=== PATIENT | male | born 1970 | race Caucasian/White ===

== ENCOUNTER 2017-01-13 17:06 | Emergency (ER) | payer OTHER | END 2017-01-13 19:53 | disposition home or self-care (01) | LOC: ER 17:06 | DX: S67.196A Crushing injury of right little finger, initial encounter (principal); S61.306A Unspecified open wound of right little finger with damage to nail, initial encounter; W23.0XXA Caught, crushed, jammed, or pinched between moving objects, initial encounter; Y92.019 Unspecified place in single-family (private) house as the place of occurrence of the external cause; Z91.041 Radiographic dye allergy status | CPT/HCPCS: 11730; 12001; 73140; 99070; 99283 ==